=== PATIENT | male | born 1995 | race Hispanic/Latino ===

== ENCOUNTER 2018-02-09 17:17 | Emergency (ER) | payer SELFPAY ==
[2018-02-09] MEDS ORDERED: Bacitracin Zinc 1 Packet ONE (18:21)
== END 2018-02-09 18:40 | disposition home or self-care (01) ==
LOC: ERS 17:17
DX: S31.801A Laceration without foreign body of unspecified buttock, initial encounter (principal); F17.210 Nicotine dependence, cigarettes, uncomplicated; W01.198A Fall on same level from slipping, tripping and stumbling with subsequent striking against other object, initial encounter
CPT/HCPCS: 12002

== ENCOUNTER 2018-10-03 18:09 | Emergency (ER) | payer SELFPAY ==
--- NOTE | 2018-10-03 18:52 | RAD ---
RIGHT HAND THREE VIEWS: 10/03/2018 HISTORY: Injury. Trauma. Pain. FINDINGS: There is a comminuted and impacted fracture at the base of the 5th metacarpal, extending into the 5th carpometacarpal joint. There is an old fracture of the ulnar styloid. There is no evidence for dis location. There is soft tissue swelling. IMPRESSION: Comminuted and impacted intraarticular fracture at the base of the 5th metacarpal. POS: JOSSUE
== END 2018-10-03 19:17 | disposition home or self-care (01) ==
LOC: ERS 18:09
DX: S62.316A Displaced fracture of base of fifth metacarpal bone, right hand, initial encounter for closed fracture (principal); F17.210 Nicotine dependence, cigarettes, uncomplicated; W22.01XA Walked into wall, initial encounter
CPT/HCPCS: 26600